=== PATIENT | male | born 1980 | race Caucasian/White ===

== ENCOUNTER 2021-01-22 22:03 | Emergency (ER) | payer MEDICARE, MEDICAID ==
[~2021-01-22] VITALS: Ht 185.4 cm; Wt 263.6 kg
[2021-01-22 22:10] VITALS: BP 160/92; Ht 185.4 cm; Wt 263.6 kg
[2021-01-22] MEDS ORDERED: HYDROCODONE-AC1 EAC2 PO (22:18)
[2021-01-22] MEDS ORDERED: PREDNISONE50 MG PO (22:19)
== END 2021-01-22 22:24 | disposition home or self-care (01) ==
LOC: D.ER 22:03
DX: M10.9 Gout, unspecified (principal)